=== PATIENT | male | born 1995 | race Caucasian/White ===

== ENCOUNTER 2017-11-24 00:13 | Observation (INO) | payer OTHER ==
[2017-11-24] VITALS (11 sets, daily range): BP systolic 114–137; BP diastolic 62–75; PULSE 55–86; RESP 16–20; TEMP 98.1–98.6; O2SAT 96–100
[~2017-11-24] VITALS: Ht 172.7 cm; Wt 80.0 kg
--- NOTE | 2017-11-24 02:19 | PD ---
HPI Chief Complaint: Chest Pain Time Seen by Provider: 01:51 Travel History International Travel<30 days: No Contact w/Intl Traveler<30days: No Traveled to known affect area: No History of Present Illness HPI The patient is a 22 year old male who presents to the [facility] emergency department with a history of awakening from sound sleep with mid epigastric abdominal pain at 12 midnight. He reports that the pain is sharp in character. He reports the pain is a 10 out of 10 in severity. It is coming and going. He denies any history of abdominal pain in the past. He had n/v x5 with this. He denies having any diarrhea. He reports that prior to going to bed he was watching Netflix and had a late dinner. He denies having any recent changes in his weight. The patient denies any recent fevers, neck pain, chest pain, shortness of breath, diarrhea, urinary symptoms, or neurologic symptoms. The patient reports that he had coughing congestion that is improved that began last week. The patient reports that with the abdominal pain he has had shortness of breath. He reports that the abdominal pain seems to take his breath away. The patient denies taking any [id number] pain relievers on a regular basis. [facility] Past Medical History Narrative Medical The patient's past medical history is reportedly none. Medical History: Denies Significant Hx Past Surgical History Surgical History: No Previous Surgery Social History Alcohol Use: No Tobacco Use: No Substance Use: No Allergies-Medications (Allergen,Severity, Reaction): Coded Allergies: Penicillins (Verified Allergy, Unknown, 11/25/17) Reported Meds & Prescriptions Reported Meds & Active Scripts Active No Active Prescriptions or Reported Medications Review of Systems Except as stated in HPI: all other systems reviewed are Neg General / Constitutional: No: Fever Eyes: No: Visual changes HENT: No: Headaches Cardiovascular: No: Chest Pain or Discomfort Respiratory: Positive: Shortness of Breath Gastrointestinal: Positive: Nausea, Vomiting, Abdominal Pain Genitourinary: No: Dysuria Musculoskeletal: No: Pain Skin: No Rash Neurologic: No: Weakness Psychiatric: No: Depression Endocrine: No: Polydipsia Hematologic/Lymphatic: No: Easy Bruising Physical Exam Narrative General: The patient is a well-developed well-nourished male in no acute distress. Head and Neck exam: Head is normocephalic atraumatic. Eyes: EOMI, pupils are equal round and reactive to light. Nose: Midline septum with pink mucous membranes Mouth: Dentition unremarkable. Moist mucus membranes. Posterior oropharynx is not erythematous. No tonsillar hypertrophy. Uvula midline. Airway patent. Neck: No palpable lymphadenopathy. No nuchal rigidity. No thyromegaly. Cardiovascular: Regular rate and rhythm without murmurs, gallops, or rubs. Lungs: Clear to auscultation bilaterally. No wheezes, rhonchi, or rales. Abdomen: Soft, with tenderness on palpation of the midepigastric area and right upper quadrant of the abdomen. No guarding, rebound, or rigidity. Normal bowel sounds are audible. No tenderness on palpation of McBurney's point. The patient has a positive Blanco sign. Extremities: No clubbing, cyanosis, or edema. 2+ pulses in all 4 extremities. Back: No spinous process tenderness to palpation. No costovertebral angle tenderness to palpation. Neurologic Exam: Grossly nonfocal. Skin Exam: No rash noted. Intact skin that is warm and dry. Data Data Last Documented VS Vital Signs Date Time Temp Pulse Resp B/P (MAP) Pulse Ox O2 Delivery O2 Flow Rate FiO2 11/24/17 07:39 67 20 114/71 (85) 100 Room Air 11/24/17 00:17 98.1 Orders Orders Electrocardiogram (11/24/17 01:51) Complete Blood Count With Diff (11/24/17 01:51) Comprehensive Metabolic Panel (11/24/17 01:51) Ckmb (Isoenzyme) Profile (11/24/17 01:51) Troponin I (11/24/17 01:51) B-Type Natriuretic Peptide (11/24/17 01:51) Lipase (11/24/17 01:51) Urinalysis - C+S If Indicated (11/24/17 01:51) D-Dimer (11/24/17 01:51) Chest, Single Ap (11/24/17 01:51) Iv Access Insert/Monitor (11/24/17 01:51) Ecg Monitoring (11/24/17 01:51) Oximetry (11/24/17 01:51) CKMB (11/24/17 02:00) CKMB% (11/24/17 02:00) Us Abdomen Gallbladder (11/24/17 04:27) Sodium Chlor 0.9% 1000 Ml Inj (Ns 1000 M (11/24/17 04:30) Ondansetron Inj (Zofran Inj) (11/24/17 04:30) Morphine Inj (Morphine Inj) (11/24/17 04:30) Piperacil-Tazo 3.375 Gm Premix (Zosyn 3. (11/24/17 06:30) Admit Order (Ed Use Only) (11/24/17 07:39) Consult General Surgery (11/24/17 ) Place In Observation (11/24/17 ) Vital Signs (Adult) Q4H (11/24/17 07:40) Activity Oob Ad Lizz (11/24/17 07:40) Sodium Chlor 0.9% 1000 Ml Inj (Ns 1000 M (11/24/17 07:40) Sodium Chloride 0.9% Flush (Ns Flush) (11/24/17 07:45) Sodium Chloride 0.9% Flush (Ns Flush) (11/24/17 09:00) Acetaminophen (Tylenol) (11/24/17 07:45) Ondansetron Inj (Zofran Inj) (11/24/17 07:45) Complete Blood Count With Diff (11/25/17 06:00) Naloxone Inj (Narcan Inj) (11/24/17 07:45) Calcium Carbonate Chew (Tums Chew) (11/24/17 07:45) Labs Laboratory Tests Test 11/24/17 02:00 White Blood Count 13.4 TH/MM3 Red Blood Count 4.81 MIL/MM3 Hemoglobin 14.3 GM/DL Hematocrit 41.2 % Mean Corpuscular Volume 85.5 FL Mean Corpuscular Hemoglobin 29.8 PG Mean Corpuscular Hemoglobin Concent 34.8 % Red Cell Distribution Width 12.9 % Platelet Count 319 TH/MM3 Mean Platelet Volume 7.0 FL Neutrophils (%) (Auto) 79.6 % Lymphocytes (%) (Auto) 13.9 % Monocytes (%) (Auto) 5.7 % Eosinophils (%) (Auto) 0.6 % Basophils (%) (Auto) 0.2 % Neutrophils # (Auto) 10.7 TH/MM3 Lymphocytes # (Auto) 1.9 TH/MM3 Monocytes # (Auto) 0.8 TH/MM3 Eosinophils # (Auto) 0.1 TH/MM3 Basophils # (Auto) 0.0 TH/MM3 CBC Comment DIFF FINAL Differential Comment D-Dimer Quantitative (PE/DVT) 0.28 MG/L FEU Urine Color YELLOW Urine Turbidity CLEAR Urine pH 6.0 Urine Specific [place] 1.023 Urine Protein TRACE mg/dL Urine Glucose (UA) NEG mg/dL Urine Ketones NEG mg/dL Urine Occult Blood NEG Urine Nitrite NEG Urine Bilirubin NEG Urine Urobilinogen LESS THAN 2.0 MG/DL Urine Leukocyte Esterase NEG Urine RBC 2 /hpf Urine WBC 1 /hpf Urine Squamous Epithelial Cells <1 /hpf Urine Bacteria RARE /hpf Urine Mucus FEW /lpf Microscopic Urinalysis Comment CULT NOT INDICATED Blood Urea Nitrogen 12 MG/DL Creatinine 1.02 MG/DL Random Glucose 85 MG/DL Total Protein 7.9 GM/DL Albumin 4.0 GM/DL Calcium Level 8.6 MG/DL Alkaline Phosphatase 153 U/L Aspartate Amino Transf (AST/SGOT) 84 U/L Alanine Aminotransferase (ALT/SGPT) 73 U/L Total Bilirubin 0.3 MG/DL Sodium Level 138 MEQ/L Potassium Level 3.8 MEQ/L Chloride Level 102 MEQ/L Carbon Dioxide Level 28.0 MEQ/L Anion Gap 8 MEQ/L Estimat Glomerular Filtration Rate 93 ML/MIN Total Creatine Kinase 160 U/L Creatine Kinase MB 1.3 NG/ML Troponin I LESS THAN 0.02 NG/ML B-Type Natriuretic Peptide 2 PG/ML Lipase 145 U/L [facility] Medical Decision Making Medical Screen Exam Complete: Yes Emergency Medical Condition: Yes Medical Record Reviewed: Yes Interpretation(s) Last Impressions Gall Bladder Ultrasound 11/24/17 0427 Signed Impressions: Service Date/Time: Friday, November 24, 2017 03:53 - CONCLUSION: 1. Positive for gallbladder sludge without gallstones or biliary ductal dilatation. Remainder of exam unremarkable. Elliot Morillo MD Chest X-Ray 11/24/17 0151 Signed Impressions: Service Date/Time: Friday, November 24, 2017 02:20 - CONCLUSION: 1. No acute findings. Minimal basilar atelectasis. Elliot Morillo MD Differential Diagnosis Biliary colic, versus acute cholecystitis, versus peptic ulcer disease, versus acid reflux, versus pulmonary embolism Narrative Course During the course of the patients emergency department visit, the patients history, examination, and differential diagnosis were reviewed with the patient. The patient was placed on a diagnostic cardiac sonographer with oximetry and frequent blood pressure monitoring. The patient had IV access obtained and blood work sent for analysis. The patient had an EKG done on arrival that shows a sinus rhythm heart rate is 75, QRS duration is 99 ms, QTc is 410 ms, no acute ST segment elevation is noted. He waves are inverted in V1. The patient was initially provided normal saline IV fluids, morphine for pain, Zofran for nausea. The patient's laboratory studies were reviewed and remarkable for a white count of 13.4, hemoglobin 14.3, platelets 319 with 79.6 neutrophils, CMP is remarkable for an AST of 84, ALT 73, alkaline phosphatase 153, lipase 145, cardiac enzymes within normal limits, BNP within normal limits, d-dimer 0.28 decreased the likelihood of pulmonary embolism in this patient with no other significant risk factors. Urinalysis is unremarkable. Radiology studies were reviewed and remarkable for a chest x-ray that shows no acute findings. Ultrasound of the gallbladder shows sludge in the gallbladder without gallstones or biliary ductal dilatation. I spoke to Dr. Mcneal at 7 AM. He recommended that the patient be admitted to the medical service, GI consultation for consideration of endoscopy to rule out peptic ulcer disease. He reported that he will see the patient consultation. The patients results were discussed with the patient, including the plan of care. I explained that further testing and/ or monitoring is indicated based on the patients history, examination, and/ or laboratory findings. Therefore, I recommended admission for additional evaluation. The patient expressed understanding and was agreeable with this plan. The patient was admitted to the hospital in stable condition and [facility] Physician Communication Physician Communication The patient's case including history, pertinent physical examination findings, and laboratory studies were discussed with Dr. Mcneal the general surgeon, and Dr. Duque, the hospitalist. It was agreed that the [facility]. Mcneal recommended a GI consultation and he will see the patient in consultation. Diagnosis Primary Impression: Abdominal pain Qualified Codes: R10.11 - Right upper quadrant pain Additional Impressions: Biliary sludge Leukocytosis Qualified Codes: D72.829 - Elevated white blood cell count, unspecified Admitting Information Admitting Physician Requests: Observation Scripts No Active Prescriptions or Reported Meds Rubia Cole MD Nov 24, 2017 02:19
[2017-11-24 02:24] LABS: BACTERIA, URINE RARE /hpf; BILIRUBIN, URINE NEG (NEG); BLOOD, URINE NEG (NEG); GLUCOSE,URINE NEG (NEG); KETONE, URINE NEG (NEG); MUCUS URINE FEW /lpf (OCC); NITRITE,URINE NEG (NEG); SQUAMOUS EPITHELIAL CELL URINE <1 /hpf (0-5); URINE COLOR YELLOW (YELLW/STRAW); URINE LEUKOCYTE ESTERASE NEG (NEG)
[2017-11-24 02:28] LABS: AUTOMATED NEUTROPHIL # 10.7 TH/MM3 (1.8-7.7); BASOPHIL % 0.2 % (0.0-2.0); EOSINOPHIL # 0.1 TH/MM3 (0-0.4); EOSINOPHIL % 0.6 % (0.0-4.0); HEMATOCRIT 41.2 % (39.0-51.0); HEMOGLOBIN 14.3 GM/DL (13.0-17.0); LYMPH % 13.9 % (9.0-44.0); LYMPHOCYTE # 1.9 TH/MM3 (1.0-4.8); MEAN CELL VOLUME 85.5 FL (80.0-100.0); MEAN CORPUSCULAR HEMOGLOBIN 29.8 PG (27.0-34.0); MEAN CORPUSCULAR HGB CONC 34.8 % (32.0-36.0); MONO % 5.7 % (0.0-8.0); MONOCYTE # 0.8 TH/MM3 (0-0.9); NEUT % 79.6 % (16.0-70.0); PLATELET COUNT 319 TH/MM3 (150-450); RED BLOOD COUNT 4.81 MIL/MM3 (4.50-5.90); RED CELL DISTRIBUTION WIDTH 12.9 % (11.6-17.2); WHITE BLOOD COUNT 13.4 TH/MM3 (4.0-11.0)
--- NOTE | 2017-11-24 02:39 | RADRPT ---
EXAM DATE/TIME: 11/24/2017 02:20 [facility] COMPARISON: No previous studies available for comparison. INDICATIONS : Chest pain. MEDICAL HISTORY : None. SURGICAL HISTORY : None. ENCOUNTER: Initial ACUITY: 1 day PAIN SCORE: 7/10 LOCATION: Bilateral chest FINDINGS: A single view of the chest demonstrates the lungs to be symmetrically aerated without evidence of mas s, infiltrate or effusion. The cardiomediastinal contours are unremarkable. Osseous structures are intact. CONCLUSION: 1. No acute findings. Minimal basilar atelectasis. Elliot Morillo MD on November 24, 2017 at 2:37 Board Certified Radiologist. This report was verified electronically.
[2017-11-24 02:40] LABS: ALT (GPT) 73 U/L (9-52); AST (GOT) 84 U/L (15-39); BLOOD UREA NITROGEN 12 MG/DL (7-18); CALCIUM 8.6 MG/DL (8.5-10.1); CHLORIDE 102 MEQ/L (98-107); CREATININE 1.02 MG/DL (0.60-1.30); GLOMERULAR FILTRATION RATE 93 ML/MIN (>89); GLUCOSE,RANDOM 85 MG/DL (74-106); SODIUM (NA) 138 MEQ/L (136-145)
[2017-11-24 02:44] LABS: ALKALINE PHOSPHATASE 153 U/L (45-117); TOTAL BILIRUBIN ADULT 0.3 MG/DL (0.2-1.0); TOTAL PROTEIN 7.9 GM/DL (6.4-8.2); TROPONIN I LESS THAN 0.02 NG/ML (0.02-0.05)
[2017-11-24] MEDS ORDERED: SODIUM CHLOR 0.9% 1000 ML INJ 1,000 ML IV ONE (04:30)
[2017-11-24] MEDS ORDERED: MORPHINE SULFATE 4 MG/ML INJ IV PUSH ONE (04:30)
[2017-11-24] MEDS ORDERED: ONDANSETRON HCL 4 MG/2 ML VIAL IV ONE (04:30)
--- NOTE | 2017-11-24 05:35 | RADRPT ---
EXAM DATE/TIME: 11/24/2017 03:53 [facility] COMPARISON: No previous studies available for comparison. INDICATIONS : Right upper quadrant pain. MEDICAL HISTORY : Right upper quadrant pain. SURGICAL HISTORY : None. ENCOUNTER: Initial ACUITY: 1 day PAIN SCORE: 3/10 LOCATION: Right upper quadrant MEASUREMENTS: LIVER: 15.9 cm length COMMON DUCT: 3 mm RIGHT KIDNEY: 11.0 x 5.2 x 5.4 cm FINDINGS: LIVER: Normal echotexture without focal lesion or ductal dilatation. COMMON DUCT: No intraluminal mass or stone visualized. GALLBLADDER: sludge present. No gallstones. PANCREAS: The visualized portions are within normal limits. RIGHT KIDNEY: No evidence of hydronephrosis, stone, or mass. CONCLUSION: 1. Positive for gallbladder sludge without gallstones or biliary ductal dilatation. Remainder of exam unremarkable. Elliot Morillo MD on November 24, 2017 at 5:30 Board Certified Radiologist. This report was verified electronically.
[2017-11-24] MEDS ORDERED: PIPERACIL-TAZO 3.375 GM PREMIX 50 ML IV ONE (06:30)
[2017-11-24] MEDS ORDERED: CALCIUM CARBONATE 500 MG CHEWABLE TAB CHEW ONE (07:45)
[2017-11-24] MEDS ORDERED: ONDANSETRON HCL 4 MG/2 ML VIAL IVP PRN (07:45)
[2017-11-24] MEDS ORDERED: SODIUM CHLORIDE 0.9% FLUSH 10 ML FLUSH IV FLUSH PRN (07:45)
[2017-11-24] MEDS ORDERED: NALOXONE HCL 0.4 MG/ML AMP IV PUSH PRN (07:45)
[2017-11-24] MEDS ORDERED: ACETAMINOPHEN 325 MG TAB PO PRN (07:45)
[2017-11-24] MEDS: SODIUM CHLOR 0.9% 1000 ML INJ 1,000 ML IV SCH (09:22)
[2017-11-24] MEDS: SODIUM CHLORIDE 0.9% FLUSH 10 ML FLUSH IV FLUSH SCH ×2 (09:23→21:00)
--- NOTE | 2017-11-24 09:56 | PD.CONS ---
cc: Kris Mcneal MD HPI Service General Surgery Consult Requested By Dr. Cole Reason for Consult Evaluate RUQ tenderness; US shows gallbladder sludge Primary Care Physician Unknown History of Present Illness This is a 22 year old male with no past medical history. He awoke from a deep sleep about midnight with 10/10 constant pain. He has had multiple episodes of nausea and vomiting. He last ate [employer] for dinner with his friend who is also present in the room and feels fine. Of note, the patient did have an upper respiratory infection with questionable influenza about a week to a week and a half ago which was treated with over the counter medications. An US was obtained which shows gallbladder sludge without any biliary dilatation. The patient does have a mildly elevated white blood cell count. His total bilirubin is normal. His other liver enzymes are mildly elevated. The patient has had a clear liquid diet this morning and tolerated it without any issues. A General Surgery consultation has been requested. Review of Systems Constitutional: DENIES: Fatigue, Weight loss Endocrine: DENIES: Polydipsia, Polyuria, Polyphagia Eyes: DENIES: Diplopia Ears, nose, mouth, throat: DENIES: Hearing loss Respiratory: DENIES: Cough Cardiovascular: DENIES: Chest pain, Syncope Gastrointestinal: COMPLAINS OF: Abdominal pain, Nausea, Vomiting Genitourinary: DENIES: Urgency Musculoskeletal: DENIES: Muscle aches Integumentary: DENIES: Abnormal pigmentation Hematologic/lymphatic: DENIES: Bruising Immunologic/allergic: DENIES: Eczema Neurologic: DENIES: Headache, Localized weakness Psychiatric: DENIES: Mood changes, Depression Past Family Social History Past Medical History None Past Surgical History None Reported Medications None Allergies: Coded Allergies: Penicillins (Verified Allergy, Unknown, 11/25/17) Active Ordered Medications Current Medications Medications (Trade) Dose Ordered Sig/Zainab Route Start Time Stop Time Status Last Admin Sodium Chloride 1,000 ml @ 100 mls/hr Q10H IV 11/24/17 07:40 11/24/17 09:22 (NS Flush) 2 ml UNSCH PRN IV FLUSH 11/24/17 07:45 (NS Flush) 2 ml BID IV FLUSH 1/30/18 09:00 11/24/17 09:23 (Tylenol) 650 mg Q4H PRN PO 11/24/17 07:45 (Zofran Inj) 4 mg Q6H PRN IVP 11/24/17 07:45 (Narcan Inj) 0.4 mg UNSCH PRN IV PUSH 11/24/17 07:45 Family History Maternal Grandmother with gallbladder removal Social History Denies tobacco use Denies ETOH use Denies illicit drug use 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 He plays on the baseball team. Physical Exam Vital Signs Vital Signs Date Time Temp Pulse Resp B/P (MAP) Pulse Ox O2 Delivery O2 Flow Rate FiO2 11/24/17 07:39 67 20 114/71 (85) 100 Room Air 11/24/17 04:18 69 16 116/75 (89) 96 Room Air 11/24/17 02:07 99 Room Air 11/24/17 02:07 86 18 99 Room Air 11/24/17 00:47 55 18 137/75 (95) 100 11/24/17 00:17 98.1 60 20 97 Room Air Physical Exam GENERAL: Very pleasant 22 year old male resting in bed in no acute distress. SKIN: Warm and dry. HEAD: Atraumatic. Normocephalic. EYES: Pupils equal and round. No scleral icterus. No injection or drainage. ENT: No nasal bleeding or discharge. Mucous membranes pink and moist. NECK: Trachea midline. CARDIOVASCULAR: Regular rate and rhythm. RESPIRATORY: No accessory muscle use. Clear to auscultation. Breath sounds equal bilaterally. GASTROINTESTINAL: Abdomen soft, non distended. Minimal tenderness with deep palpation in RUQ. No visible scars or hernias. MUSCULOSKELETAL: Extremities without clubbing, cyanosis, or edema. No obvious deformities. NEUROLOGICAL: Awake and alert. No obvious cranial nerve deficits. Motor grossly within normal limits. Five out of 5 muscle strength in the arms and legs. Normal speech. PSYCHIATRIC: Appropriate mood and affect; insight and judgment normal. Laboratory Laboratory Tests Test 11/24/17 02:00 White Blood Count 13.4 Red Blood Count 4.81 Hemoglobin 14.3 Hematocrit 41.2 Mean Corpuscular Volume 85.5 Mean Corpuscular Hemoglobin 29.8 Mean Corpuscular Hemoglobin Concent 34.8 Red Cell Distribution Width 12.9 Platelet Count 319 Mean Platelet Volume 7.0 Neutrophils (%) (Auto) 79.6 Lymphocytes (%) (Auto) 13.9 Monocytes (%) (Auto) 5.7 Eosinophils (%) (Auto) 0.6 Basophils (%) (Auto) 0.2 Neutrophils # (Auto) 10.7 Lymphocytes # (Auto) 1.9 Monocytes # (Auto) 0.8 Eosinophils # (Auto) 0.1 Basophils # (Auto) 0.0 CBC Comment DIFF FINAL Differential Comment D-Dimer Quantitative (PE/DVT) 0.28 Urine Color YELLOW Urine Turbidity CLEAR Urine pH 6.0 Urine Specific [place] 1.023 Urine Protein TRACE Urine Glucose (UA) NEG Urine Ketones NEG Urine Occult Blood NEG Urine Nitrite NEG Urine Bilirubin NEG Urine Urobilinogen LESS THAN 2.0 Urine Leukocyte Esterase NEG Urine RBC 2 Urine WBC 1 Urine Squamous Epithelial Cells <1 Urine Bacteria RARE Urine Mucus FEW Microscopic Urinalysis Comment CULT NOT INDICATED Blood Urea Nitrogen 12 Creatinine 1.02 Random Glucose 85 Total Protein 7.9 Albumin 4.0 Calcium Level 8.6 Alkaline Phosphatase 153 Aspartate Amino Transf (AST/SGOT) 84 Alanine Aminotransferase (ALT/SGPT) 73 Total Bilirubin 0.3 Sodium Level 138 Potassium Level 3.8 Chloride Level 102 Carbon Dioxide Level 28.0 Anion Gap 8 Estimat Glomerular Filtration Rate 93 Total Creatine Kinase 160 Creatine Kinase MB 1.3 Troponin I LESS THAN 0.02 B-Type Natriuretic Peptide 2 Lipase 145 Result Diagram: 11/24/1719911/24/17 020 Imaging Last 48 hours Impressions Gall Bladder Ultrasound 11/24/17426 Signed Impressions: Service Date/Time: Friday, November 24, 2017 03:53 - CONCLUSION: 1. Positive for gallbladder sludge without gallstones or biliary ductal dilatation. Remainder of exam unremarkable. Elliot Morillo MD Chest X-Ray 11/24/17 0151 Signed Impressions: Service Date/Time: Friday, November 24, 2017 02:20 - CONCLUSION: 1. No acute findings. Minimal basilar atelectasis. Elliot Morillo MD Assessment and Plan Assessment and Plan 22 year old male with acute onset of RUQ abdominal pain; questionable gallbladder etiology -Will plan for HIDA scan this afternoon -NPO -IVF -GI consult as well -Need to monitor liver enzymes -Thank you for this consult; We will continue to follow Attending Note - Dr. Mcneal Patient seen and evaluated; quite tender in the epigastrium and RUQ. EGD completed; no ulcer HIDA shows good visualization of GB If pain improved in AM, will consider D/C home. The exam, history, and the medical decision-making described in the above note were completed with the assistance of the mid-level provider. I reviewed and agree with the findings presented. I attest that I had a [id number] encounter with the patient on the same day, and personally performed and documented my assessment and findings in the medical record. Discussed Condition With Patsy Cooley Nov 24, 2017 09:56 Kris Mcneal MD Nov 25, 2017 15:12
--- NOTE | 2017-11-24 10:30 | HHI.HP ---
[facility] Unknown Admission Diagnosis Abdominal pain, Gallbladder sludge Diagnoses: Chief Complaint: Abdominal pain Travel History International Travel<30 Days: No Contact w/Intl Traveler <30 Da: No Traveled to Known Affected Are: No History of Present Illness 22-year-old male with no significant medical history presented to the emergency room with complaint of midepigastric pain. Patient states he ate some chicken filet late last night and about 4 hours later he started to experience midepigastric abdominal pain with associated nausea and vomiting 5. He denies any history of acid reflux. He denies any diarrhea. Workup in the emergency room revealed mildly elevated LFTs and sludge in the gallbladder but no obstructions. He is wbc's also mildly elevated. Patient reports since arrival he is feeling better. Still experiencing some mid epigastric discomfort but no longer has nausea or vomiting. General surgery has been consulted by the ED physician for evaluation given the abnormal gallbladder ultrasound. Review of Systems Constitutional: DENIES: Fever, Chills Gastrointestinal: COMPLAINS OF: Abdominal pain, Nausea, Vomiting, DENIES: Black stools, Diarrhea Except as stated in HPI: all other systems reviewed are Neg Past Family Social History Past Medical History None Past Surgical History None Reported Medications Reported Meds & Active Scripts Active No Active Prescriptions or Reported Medications Allergies: Coded Allergies: No Known Allergies (Unverified , 11/24/17) Family History Grandmother has history of gallstone and cholecystectomy. Social History Patient denies tobacco, alcohol, or illicit drugs. Physical Exam Vital Signs Vital Signs Date Time Temp Pulse Resp B/P (MAP) Pulse Ox O2 Delivery O2 Flow Rate FiO2 11/24/17 07:39 67 20 114/71 (85) 100 Room Air 11/24/17 04:18 69 16 116/75 (89) 96 Room Air 11/24/17 02:07 99 Room Air 11/24/17 02:07 86 18 99 Room Air 11/24/17 00:47 55 18 137/75 (95) 100 11/24/17 00:17 98.1 60 20 97 Room Air Physical Exam GENERAL: This is a well-nourished, well-developed patient, in no apparent distress. SKIN: No rashes, ecchymoses or lesions. Cool and dry. HEAD: Atraumatic. Normocephalic. No temporal or scalp tenderness. EYES: Pupils equal round and reactive. Extraocular motions intact. No scleral icterus. No injection or drainage. ENT: Nose without drainage. Throat without erythema, tonsillar hypertrophy or exudate. Uvula midline. Airway patent. NECK: Trachea midline. No JVD or lymphadenopathy. Supple, nontender, no meningeal signs. CARDIOVASCULAR: Regular rate and rhythm without murmurs, gallops, or rubs. RESPIRATORY: Clear to auscultation. Breath sounds equal bilaterally. No wheezes , rales, or rhonchi. GASTROINTESTINAL: Abdomen soft, nondistended. Mild midepigastric tenderness to deep palpation. MUSCULOSKELETAL: Extremities without clubbing, cyanosis, or edema. No joint tenderness, effusion, or edema noted. No calf tenderness. Negative Homans sign bilaterally. NEUROLOGICAL: Awake and alert. Cranial nerves II through XII intact. Motor and sensory grossly within normal limits. Five out of 5 muscle strength in all muscle groups. Normal speech. Laboratory Laboratory Tests Test 11/24/17 02:00 White Blood Count 13.4 Red Blood Count 4.81 Hemoglobin 14.3 Hematocrit 41.2 Mean Corpuscular Volume 85.5 Mean Corpuscular Hemoglobin 29.8 Mean Corpuscular Hemoglobin Concent 34.8 Red Cell Distribution Width 12.9 Platelet Count 319 Mean Platelet Volume 7.0 Neutrophils (%) (Auto) 79.6 Lymphocytes (%) (Auto) 13.9 Monocytes (%) (Auto) 5.7 Eosinophils (%) (Auto) 0.6 Basophils (%) (Auto) 0.2 Neutrophils # (Auto) 10.7 Lymphocytes # (Auto) 1.9 Monocytes # (Auto) 0.8 Eosinophils # (Auto) 0.1 Basophils # (Auto) 0.0 CBC Comment DIFF FINAL Differential Comment D-Dimer Quantitative (PE/DVT) 0.28 Urine Color YELLOW Urine Turbidity CLEAR Urine pH 6.0 Urine Specific [place] 1.023 Urine Protein TRACE Urine Glucose (UA) NEG Urine Ketones NEG Urine Occult Blood NEG Urine Nitrite NEG Urine Bilirubin NEG Urine Urobilinogen LESS THAN 2.0 Urine Leukocyte Esterase NEG Urine RBC 2 Urine WBC 1 Urine Squamous Epithelial Cells <1 Urine Bacteria RARE Urine Mucus FEW Microscopic Urinalysis Comment CULT NOT INDICATED Blood Urea Nitrogen 12 Creatinine 1.02 Random Glucose 85 Total Protein 7.9 Albumin 4.0 Calcium Level 8.6 Alkaline Phosphatase 153 Aspartate Amino Transf (AST/SGOT) 84 Alanine Aminotransferase (ALT/SGPT) 73 Total Bilirubin 0.3 Sodium Level 138 Potassium Level 3.8 Chloride Level 102 Carbon Dioxide Level 28.0 Anion Gap 8 Estimat Glomerular Filtration Rate 93 Total Creatine Kinase 160 Creatine Kinase MB 1.3 Troponin I LESS THAN 0.02 B-Type Natriuretic Peptide 2 Lipase 145 Result Diagram: 11/24/1719911/24/17199 Imaging Last Impressions Gall Bladder Ultrasound 11/24/17426 Signed Impressions: Service Date/Time: Friday, November 24, 2017 03:53 - CONCLUSION: 1. Positive for gallbladder sludge without gallstones or biliary ductal dilatation. Remainder of exam unremarkable. Elliot Morillo MD Chest X-Ray 11/24/17 0151 Signed Impressions: Service Date/Time: Friday, November 24, 2017 02:20 - CONCLUSION: 1. No acute findings. Minimal basilar atelectasis. Elliot Morillo MD Caprini VTE Risk Assessment Caprini VTE Risk Assessment: No/Low Risk (score <= 1) Caprini Risk Assessment Model Point Value = 1 Point Value = 2 Point Value = 3 Point Value = 5 Age 41-60 Minor surgery BMI > 25 kg/m2 Swollen legs Varicose veins or History of unexplained or recurrent spontaneous Oral contraceptives or hormone replacement Sepsis (< 1 month) Serious lung disease, including pneumonia (< 1 month) Abnormal pulmonary function Acute myocardial infarction Congestive heart failure (< 1 month) History of inflammatory bowel disease Medical patient at bed rest Age 61-74 Arthroscopic surgery Major open surgery (> 45 min) Laparoscopic surgery (> 45 min) Malignancy Confined to bed (> 72 hours) Immobilizing plaster cast Central venous access Age >= 75 History of VTE Family history of VTE Factor V Leiden Prothrombin [id number] Lupus anticoagulant Anticardiolipin antibodies Elevated serum homocysteine Heparin-induced thrombocytopenia Other congenital or acquired thrombophilia Stroke (< 1 month) Elective arthroplasty Hip, pelvis, or leg fracture Acute spinal cord injury (< 1 month) Prophylaxis Regimen Total Risk Factor Score Risk Level Prophylaxis Regimen 0-1 Low Early ambulation 2 Moderate Order ONE of the following: *Sequential Compression Device (SCD) *Heparin 5000 units SQ BID 3-4 Higher Order ONE of the following medications: *Heparin 5000 units SQ TID *Enoxaparin/Lovenox 40 mg SQ daily (WT < 150 kg, CrCl > 30 mL/min) *Enoxaparin/Lovenox 30 mg SQ daily (WT < 150 kg, CrCl > 10-29 mL/min) *Enoxaparin/Lovenox 30 mg SQ BID (WT < 150 kg, CrCl > 30 mL/min) AND/OR *Sequential Compression Device (SCD) 5 or more Highest Order ONE of the following medications: *Heparin 5000 units SQ TID (Preferred with Epidurals) *Enoxaparin/Lovenox 40 mg SQ daily (WT < 150 kg, CrCl > 30 mL/min) *Enoxaparin/Lovenox 30 mg SQ daily (WT < 150 kg, CrCl > 10-29 mL/min) *Enoxaparin/Lovenox 30 mg SQ BID (WT < 150 kg, CrCl > 30 mL/min) AND *Sequential Compression Device (SCD) Assessment and Plan Problem List: (1) Abdominal pain ICD Code: R10.9 - Unspecified abdominal pain Status: Acute (2) Biliary sludge ICD Code: K83.8 - Other specified diseases of biliary tract Status: Acute (3) Leukocytosis ICD Code: D72.829 - Elevated white blood cell count, unspecified Status: Acute Assessment and Plan 22-year-old male presented with acute symptoms of midepigastric pain with associated nausea and vomiting. Abnormal gallbladder ultrasound which showed sludge with no obstructions. Abdominal pain/gallbladder sludge: Given improvement in his symptoms, this is likely gastroenteritis. He may have gastritis. - Gen. surgery is following. A HIDA scan and GI consult has been ordered per Gen surgery to rule out - Continue with supportive care. IVF, clear liquid as tolerated - Pain control as needed. Leukocytosis: Secondary to above. No evidence of an acute bacterial infection at this time. - Repeat labs in AM. Expect improvement or correction. Elevated LFTs: Suspect secondary to probable Gastroenteritis. No obstruction pattern. - Repeat LFT in AM. Admit for observation. Monitor progress and consultants input. Problem Qualifiers (1) Abdominal pain: Qualified Codes: R10.11 - Right upper quadrant pain (2) Leukocytosis: Qualified Codes: D72.829 - Elevated white blood cell count, unspecified Angie Duque MD Nov 24, 2017 10:30
[2017-11-24] MEDS ORDERED: PROPOFOL 200 MG/20 ML AMP IV ONE (12:00)
[2017-11-24] MEDS ORDERED: LIDOCAINE HCL 1% PF 5 ML SYRINGE OTHER ONE (12:00)
[2017-11-24] MEDS ORDERED: SINCALIDE 5 MCG/5 ML VIAL IV ONE (14:30)
--- NOTE | 2017-11-24 15:49 | PD.CONS ---
HPI History of Present Illness This is a 22 year old male who was in his usual state of health up until after midnight when he experienced the sudden onset of epigastric pain this was severe cramping sort of pain up her abdomen no distinct radiation no obvious alleviating or exacerbating factors he presented to the ER an ultrasound was done and it shows that he has biliary sludge otherwise unremarkable arthritis scan was just done this is still pending as far as the result patient denies any heartburn reflux fever chills change in appetite weight loss diarrhea constipation PFSH Past Medical History None Past Surgical History None Coded Allergies: No Known Allergies (Unverified , 11/24/17) Medications Current Medications Sodium Chloride 1,000 ml @ 1,000 mls/hr Q1H ONCE IV Last administered on at 04:43; Start 11/24/17 at 04:30; Stop 11/24/17 at 05:29; Status DC Ondansetron HCl (Zofran Inj) 4 mg ONCE ONCE IV ; Start 11/24/17 at 04:30; Stop 11/24/17 at 04:31; Status DC Morphine Sulfate (Morphine Inj) 4 mg ONCE ONCE IV PUSH ; Start 11/24/17 at 04: 30; Stop 11/24/17 at 04:31; Status DC Piperacillin Sod/ Tazobactam Sod 50 ml @ 100 mls/hr ONCE ONCE IV Last administered on 11/24/17at 06:49; Start 11/24/17 at 06:30; Stop 11/24/17 at 06:59 ; Status DC Sodium Chloride 1,000 ml @ 100 mls/hr Q10H IV Last administered on 11/24/17at 09:22; Start 11/24/17 at 07:40 Sodium Chloride (NS Flush) 2 ml UNSCH PRN IV FLUSH FLUSH AFTER USING IV ACCESS ; Start 11/24/17 at 07:45 Sodium Chloride (NS Flush) 2 ml BID IV FLUSH Last administered on 11/24/17at 09: 23; Start 11/24/17 at 09:00 Acetaminophen (Tylenol) 650 mg Q4H PRN PO pain 1-10 or TEMP > 100.4; Start at 07:45 Ondansetron HCl (Zofran Inj) 4 mg Q6H PRN IVP NAUSEA OR VOMITING; Start at 07:45 Naloxone HCl (Narcan Inj) 0.4 mg UNSCH PRN IV PUSH SEE LABEL COMMENTS; Start at 07:45 Calcium Carbonate (Tums Chew) 500 mg ONCE ONCE CHEW Last administered on at 09:22; Start 11/24/17 at 07:45; Stop 11/24/17 at 07:55; Status DC Sincalide (Kinevac Inj) 1.6 mcg STK-MED ONCE IV Last administered on 11/24/17at 14:30; Start 11/24/17 at 14:30; Stop 11/24/17 at 14:31; Status DC Family History Grandmother has history of gallstone and cholecystectomy. Aunt has Crohn's disease Social History Patient denies tobacco, alcohol, or illicit drugs. Review of Systems Review of systems Patient denies any headache dizziness blurry vision, denies any chest pain shortness of breath cough fever chills, Denies any palpitations or fatigue denies any polyuria dysuria hematuria, denies any numbness tingling or weakness, denies any skin rash pruritus or jaundice, denies any easy bruising or bleeding tendency, denies any recent change in mood GI Exam Vitals I&O Vital Signs Date Time Temp Pulse Resp B/P (MAP) Pulse Ox O2 Delivery O2 Flow Rate FiO2 11/24/17 15:29 11/24/17 15:28 98.2 66 20 114/74 (87) 98 11/24/17 12:50 98.6 64 16 122/62 (82) 100 Room Air 11/24/17 07:39 67 20 114/71 (85) 100 Room Air 11/24/17 04:18 69 16 116/75 (89) 96 Room Air 11/24/17 02:07 99 Room Air 11/24/17 02:07 86 18 99 Room Air 11/24/17 00:47 55 18 137/75 (95) 100 11/24/17 00:17 98.1 60 20 97 Room Air I/O 11/23/17 11/23/17 11/23/17 11/24/17 11/24/17 11/24/17 07:00 15:00 23:00 07:00 15:00 23:00 Intake Total 1000 ml 1000 ml Balance 1000 ml 1000 ml Intake Oral 600 ml IV Total 1000 ml 400 ml # Voids 1 Imaging Last Impressions Gall Bladder Ultrasound 11/24/17 0427 Signed Impressions: Service Date/Time: Friday, November 24, 2017 03:53 - CONCLUSION: 1. Positive for gallbladder sludge without gallstones or biliary ductal dilatation. Remainder of exam unremarkable. Elliot Morillo MD Chest X-Ray 11/24/17 0151 Signed Impressions: Service Date/Time: Friday, November 24, 2017 02:20 - CONCLUSION: 1. No acute findings. Minimal basilar atelectasis. Elliot Morillo MD Laboratory Test 11/24/17 02:00 White Blood Count 13.4 TH/MM3 Red Blood Count 4.81 MIL/MM3 Hemoglobin 14.3 GM/DL Hematocrit 41.2 % Mean Corpuscular Volume 85.5 FL Mean Corpuscular Hemoglobin 29.8 PG Mean Corpuscular Hemoglobin Concent 34.8 % Red Cell Distribution Width 12.9 % Platelet Count 319 TH/MM3 Mean Platelet Volume 7.0 FL Neutrophils (%) (Auto) 79.6 % Lymphocytes (%) (Auto) 13.9 % Monocytes (%) (Auto) 5.7 % Eosinophils (%) (Auto) 0.6 % Basophils (%) (Auto) 0.2 % Neutrophils # (Auto) 10.7 TH/MM3 Lymphocytes # (Auto) 1.9 TH/MM3 Monocytes # (Auto) 0.8 TH/MM3 Eosinophils # (Auto) 0.1 TH/MM3 Basophils # (Auto) 0.0 TH/MM3 CBC Comment DIFF FINAL Differential Comment D-Dimer Quantitative (PE/DVT) 0.28 MG/L FEU Urine Color YELLOW Urine Turbidity CLEAR Urine pH 6.0 Urine Specific [place] 1.023 Urine Protein TRACE mg/dL Urine Glucose (UA) NEG mg/dL Urine Ketones NEG mg/dL Urine Occult Blood NEG Urine Nitrite NEG Urine Bilirubin NEG Urine Urobilinogen LESS THAN 2.0 MG/DL Urine Leukocyte Esterase NEG Urine RBC 2 /hpf Urine WBC 1 /hpf Urine Squamous Epithelial Cells <1 /hpf Urine Bacteria RARE /hpf Urine Mucus FEW /lpf Microscopic Urinalysis Comment CULT NOT INDICATED Blood Urea Nitrogen 12 MG/DL Creatinine 1.02 MG/DL Random Glucose 85 MG/DL Total Protein 7.9 GM/DL Albumin 4.0 GM/DL Calcium Level 8.6 MG/DL Alkaline Phosphatase 153 U/L Aspartate Amino Transf (AST/SGOT) 84 U/L Alanine Aminotransferase (ALT/SGPT) 73 U/L Total Bilirubin 0.3 MG/DL Sodium Level 138 MEQ/L Potassium Level 3.8 MEQ/L Chloride Level 102 MEQ/L Carbon Dioxide Level 28.0 MEQ/L Anion Gap 8 MEQ/L Estimat Glomerular Filtration Rate 93 ML/MIN Total Creatine Kinase 160 U/L Creatine Kinase MB 1.3 NG/ML Troponin I LESS THAN 0.02 NG/ML B-Type Natriuretic Peptide 2 PG/ML Lipase 145 U/L Physical Examination HEENT: Pupils round and reactive to light; normocephalic; atraumatic; no jaundice. Throat is clear. NECK: Neck is supple, no JVD, no lymphadenopathy. CHEST: Chest is clear to auscultation and percussion. CARDIAC: Regular rate and rhythm with no murmur gallop or rubs. ABDOMEN: Soft, nondistended, mild epigastric tenderness no rebound or guarding ; no hepatosplenomegaly; bowel sounds are present in all four quadrants. EXTREMITIES: No clubbing, cyanosis, or edema. SKIN: Normal; no rash; no jaundice. DRIER TAKE OFF TENDER: No focal deficits; alert and oriented times three. Assessment and Plan Plan Epigastric tenderness, elevated liver function tests, abnormal ultrasound At this point I would recommend an upper endoscopy so as to rule out peptic ulcer disease or reflux In the meanwhile continue with current supportive measures Further recommendations shall depend on the findings of the endoscopy Monitor labs Peter Perez MD Nov 24, 2017 15:49
--- NOTE | 2017-11-24 15:50 | PD.CONS ---
HPI History of Present Illness This is a 22 year old male with no significant medical history for abd pain that started last night while he was asleep. he cites pain in epigastric and hypogastric regions. THe pain is intermittent, exacerbated by bending over. he did have nausea and vomiting last night. No blood in emesis. His last meal before pains started was chik reuben sandwich and milkshake. Denies sick contacts , recent fevers. Admits fever 5 days ago. No diarrhea, blood in stool, or black tarry stool. Denies etoh consumption, liver problems hx hepatitis. GI has been consulted for abd pain and elevated LFTs. PFSH Past Medical History None Past Surgical History None Coded Allergies: No Known Allergies (Unverified , 11/24/17) Family History Grandmother has history of gallstone and cholecystectomy. Social History Patient denies tobacco, alcohol, or illicit drugs. Review of Systems Constitutional: DENIES: Fever Endocrine: DENIES: Polydipsia Eyes: DENIES: Blurred vision Ears, nose, mouth, throat: DENIES: Hearing loss Respiratory: DENIES: Cough Cardiovascular: DENIES: Chest pain Gastrointestinal: COMPLAINS OF: Abdominal pain, Nausea, Vomiting, DENIES: Black stools, Bloody stools, Constipation, Diarrhea, Hematemesis Genitourinary: DENIES: Hematuria Musculoskeletal: DENIES: Joint Swelling Integumentary: DENIES: Jaundice Hematologic/lymphatic: DENIES: Bruising Neurologic: DENIES: Abnormal gait Psychiatric: DENIES: Confusion GI Exam Vitals I&O Vital Signs Date Time Temp Pulse Resp B/P (MAP) Pulse Ox O2 Delivery O2 Flow Rate FiO2 11/24/17 15:29 11/24/17 15:28 98.2 66 20 114/74 (87) 98 11/24/17 12:50 98.6 64 16 122/62 (82) 100 Room Air 11/24/17 07:39 67 20 114/71 (85) 100 Room Air 11/24/17 04:18 69 16 116/75 (89) 96 Room Air 11/24/17 02:07 99 Room Air 11/24/17 02:07 86 18 99 Room Air 11/24/17 00:47 55 18 137/75 (95) 100 11/24/17 00:17 98.1 60 20 97 Room Air I/O 11/23/17 11/23/17 11/23/17 11/24/17 11/24/17 11/24/17 07:00 15:00 23:00 07:00 15:00 23:00 Intake Total 1000 ml 1000 ml Balance 1000 ml 1000 ml Intake Oral 600 ml IV Total 1000 ml 400 ml # Voids 1 Imaging Last Impressions Gall Bladder Ultrasound 11/24/17 0427 Signed Impressions: Service Date/Time: Friday, November 24, 2017 03:53 - CONCLUSION: 1. Positive for gallbladder sludge without gallstones or biliary ductal dilatation. Remainder of exam unremarkable. Elliot Morillo MD Chest X-Ray 11/24/17 0151 Signed Impressions: Service Date/Time: Friday, November 24, 2017 02:20 - CONCLUSION: 1. No acute findings. Minimal basilar atelectasis. Elliot Morillo MD Laboratory Test 11/24/17 02:00 White Blood Count 13.4 TH/MM3 Red Blood Count 4.81 MIL/MM3 Hemoglobin 14.3 GM/DL Hematocrit 41.2 % Mean Corpuscular Volume 85.5 FL Mean Corpuscular Hemoglobin 29.8 PG Mean Corpuscular Hemoglobin Concent 34.8 % Red Cell Distribution Width 12.9 % Platelet Count 319 TH/MM3 Mean Platelet Volume 7.0 FL Neutrophils (%) (Auto) 79.6 % Lymphocytes (%) (Auto) 13.9 % Monocytes (%) (Auto) 5.7 % Eosinophils (%) (Auto) 0.6 % Basophils (%) (Auto) 0.2 % Neutrophils # (Auto) 10.7 TH/MM3 Lymphocytes # (Auto) 1.9 TH/MM3 Monocytes # (Auto) 0.8 TH/MM3 Eosinophils # (Auto) 0.1 TH/MM3 Basophils # (Auto) 0.0 TH/MM3 CBC Comment DIFF FINAL Differential Comment D-Dimer Quantitative (PE/DVT) 0.28 MG/L FEU Urine Color YELLOW Urine Turbidity CLEAR Urine pH 6.0 Urine Specific [place] 1.023 Urine Protein TRACE mg/dL Urine Glucose (UA) NEG mg/dL Urine Ketones NEG mg/dL Urine Occult Blood NEG Urine Nitrite NEG Urine Bilirubin NEG Urine Urobilinogen LESS THAN 2.0 MG/DL Urine Leukocyte Esterase NEG Urine RBC 2 /hpf Urine WBC 1 /hpf Urine Squamous Epithelial Cells <1 /hpf Urine Bacteria RARE /hpf Urine Mucus FEW /lpf Microscopic Urinalysis Comment CULT NOT INDICATED Blood Urea Nitrogen 12 MG/DL Creatinine 1.02 MG/DL Random Glucose 85 MG/DL Total Protein 7.9 GM/DL Albumin 4.0 GM/DL Calcium Level 8.6 MG/DL Alkaline Phosphatase 153 U/L Aspartate Amino Transf (AST/SGOT) 84 U/L Alanine Aminotransferase (ALT/SGPT) 73 U/L Total Bilirubin 0.3 MG/DL Sodium Level 138 MEQ/L Potassium Level 3.8 MEQ/L Chloride Level 102 MEQ/L Carbon Dioxide Level 28.0 MEQ/L Anion Gap 8 MEQ/L Estimat Glomerular Filtration Rate 93 ML/MIN Total Creatine Kinase 160 U/L Creatine Kinase MB 1.3 NG/ML Troponin I LESS THAN 0.02 NG/ML B-Type Natriuretic Peptide 2 PG/ML Lipase 145 U/L Physical Examination HEENT: PERRL; normocephalic; atraumatic; no jaundice. CHEST: CTA CARDIAC: RRR ABDOMEN: Soft, nondistended, epigastric and RUQ TTP; no hepatosplenomegaly; bowel sounds are present in all four quadrants. EXTREMITIES: No clubbing, cyanosis, or edema. SKIN: Normal; no rash; no jaundice. ACCOUNTING POLICY CONSULTANT: No focal deficits; alert and oriented times three. Olga Farris Nov 24, 2017 15:50
--- NOTE | 2017-11-24 16:03 | RADRPT ---
EXAM DATE/TIME: 11/24/2017 13:10 [place] COMPARISON: US ABDOMEN - GALLBLADDER, November 24, 2017, 3:53. INDICATIONS : Right upper quadrant pain, nausea and vomiting. DOSE: 4.2 mCi [id number] Mebrofenin IV MEDICATION: 1.6 mcg Cholecystokinin IV; No symptomatic response. Cholecystokinin was administered by slow infusion over 8 minutes beginning at 60 minutes. MEDICAL HISTORY : None. SURGICAL HISTORY : None. ENCOUNTER: Initial ACUITY: 1 day PAIN SCALE: 10/10 LOCATION: Right upper quadrant TECHNIQUE: Following the intravenous administration of radiotracer, dynamic sequential image were performed with continuous acquisition. Time-activity curves were generated. FINDINGS: HEPATIIC KINETICS: There is prompt uptake of radiotracer in the liver. No focal defects are seen. There is normal rate of washout from the hepatic parenchyma. BILIARY CLEARANCE: Activity is first seen in the extrahepatic biliary system at 10-15 minutes. There is normal excretio n into the small bowel. GALLBLADDER: Activity is first seen in the gallbladder at 35 minutes. POST CHOLECYSTOKININ: After Cholecystokinin administration, there is prompt emptying of the gallbladder with a normal eject ion fraction. Common bile duct kinetics are normal and there is no evidence of biliary obstruction. BILIARY ENTERIC REFLUX: None observed. CLINICAL: The patient was asymptomatic after Cholecystokinin administration. CONCLUSION: Normal examination. Cesar Lyman MD on November 24, 2017 at 15:58 Board Certified Radiologist. This report was verified electronically.
--- NOTE | 2017-11-24 16:34 | PD.PROCEDR ---
GI Procedure PROCEDURE PERFORMED EGD INDICATION FOR PROCEDURE Epigastric pain PROCEDURE: The procedure, risks and benefits were discussed with Mr. Gutierrez and informed consent was obtained. Anesthesia sedated him with Diprivan. He was placed in the left lateral decubitus position. EGD: The Pentax videoscope was introduced through the oropharynx and advanced to the second portion of the duodenum under direct visualization. Retroflexion was performed in the stomach. FINDINGS: Esophagus this was normal Stomach this too was unremarkable and within normal limits Duodenum this too appeared to be unremarkable and within normal limits ESTIMATED BLOOD LOSS: None SPECIMENS REMOVED: None COMPLICATIONS: None IMPRESSION: Normal EGD PLAN: Monitor labs Clear liquid diet Further recommendations shall depend on the hida scan and clinical state in the morning Peter Perez MD Nov 24, 2017 16:34
[2017-11-25] VITALS (7 sets, daily range): BP systolic 103–122; BP diastolic 62–74; PULSE 65–94; RESP 16–18; TEMP 97.9–98.6; O2SAT 96–100
--- NOTE | 2017-11-25 00:37 | EKG ---
Date Performed: 11/24/2017 Time Performed: 02:11:33 PTAGE: 22 years EKG: Sinus rhythm BORDERLINE RIGHT AXIS DEVIATION BORDERLINE ECG NO PREVIOUS TRACING DOCTOR: Molina Lyons Interpretating Date/Time 11/25/2017 00:36:15
[2017-11-25] MEDS: SODIUM CHLORIDE 0.9% FLUSH 10 ML FLUSH IV FLUSH SCH ×2 (09:00→21:00)
[2017-11-25 10:23] LABS: AUTOMATED NEUTROPHIL # 2.9 TH/MM3 (1.8-7.7); BASOPHIL % 0.6 % (0.0-2.0); EOSINOPHIL % 0.7 % (0.0-4.0); HEMATOCRIT 44.6 % (39.0-51.0); HEMOGLOBIN 15.1 GM/DL (13.0-17.0); LYMPH % 34.8 % (9.0-44.0); LYMPHOCYTE # 1.8 TH/MM3 (1.0-4.8); MEAN CELL VOLUME 86.5 FL (80.0-100.0); MEAN CORPUSCULAR HEMOGLOBIN 29.2 PG (27.0-34.0); MEAN CORPUSCULAR HGB CONC 33.8 % (32.0-36.0); MEAN PLATELET VOLUME 7.3 FL (7.0-11.0); MONO % 8.7 % (0.0-8.0); MONOCYTE # 0.4 TH/MM3 (0-0.9); NEUT % 55.2 % (16.0-70.0); PLATELET COUNT 344 TH/MM3 (150-450); RED BLOOD COUNT 5.16 MIL/MM3 (4.50-5.90); RED CELL DISTRIBUTION WIDTH 13.1 % (11.6-17.2); WHITE BLOOD COUNT 5.2 TH/MM3 (4.0-11.0)
[2017-11-25 10:48] LABS: ALBUMIN 3.9 GM/DL (3.4-5.0); AST (GOT) 38 U/L (15-39); BICARBONATE 28.2 MEQ/L (21.0-32.0); BLOOD UREA NITROGEN 6 MG/DL (7-18); CALCIUM 9.1 MG/DL (8.5-10.1); CHLORIDE 103 MEQ/L (98-107); CREATININE 0.84 MG/DL (0.60-1.30); GLOMERULAR FILTRATION RATE 116 ML/MIN (>89); GLUCOSE,RANDOM 86 MG/DL (74-106); SODIUM (NA) 137 MEQ/L (136-145)
[2017-11-25 10:50] LABS: ALT (GPT) 70 U/L (9-52)
[2017-11-25 10:51] LABS: ALKALINE PHOSPHATASE 139 U/L (45-117); TOTAL BILIRUBIN ADULT 0.5 MG/DL (0.2-1.0); TOTAL PROTEIN 7.9 GM/DL (6.4-8.2)
[2017-11-25] MEDS ORDERED: BUPIVACAINE/EPINEPHRINE 0.5% PF 30 ML VIAL ONE (11:58)
--- NOTE | 2017-11-25 12:20 | HHI.GIFU ---
Subjective Remarks Pt resting in bed. Pain 02/02 RUQ. Going for lap irma. (Olga Farris) Objective Vitals I&O Vital Signs Date Time Temp Pulse Resp B/P (MAP) Pulse Ox O2 Delivery O2 Flow Rate FiO2 11/25/17 11:30 97.9 67 18 103/62 (76) 99 11/25/17 08:30 97.9 65 16 122/74 (90) 11/25/17 04:50 98.1 80 18 121/71 (88) 100 11/25/17 00:40 98.6 85 18 99 11/24/17 19:38 98.4 86 18 124/68 (86) 98 11/24/17 17:58 98.4 71 20 118/70 (86) 99 11/24/17 16:50 98.4 71 20 118/70 (86) 99 11/24/17 16:38 98.0 76 16 108/63 (78) 97 11/24/17 15:30 98.2 64 20 114/68 (83) 97 11/24/17 15:29 11/24/17 15:28 98.2 66 20 114/74 (87) 98 11/24/17 12:50 98.6 64 16 122/62 (82) 100 Room Air I/O 11/24/17 11/24/17 11/24/17 11/25/17 11/25/17 11/25/17 07:00 15:00 23:00 07:00 15:00 23:00 Intake Total 1000 ml 1000 ml 700 ml 0 ml Balance 1000 ml 1000 ml 700 ml 0 ml Intake Oral 600 ml 300 ml 0 ml IV Total 1000 ml 400 ml 300 ml 0 ml Other 100 ml # Voids 1 2 Laboratory Laboratory Tests Test 11/25/17 08:35 White Blood Count 5.2 Red Blood Count 5.16 Hemoglobin 15.1 Hematocrit 44.6 Mean Corpuscular Volume 86.5 Mean Corpuscular Hemoglobin 29.2 Mean Corpuscular Hemoglobin Concent 33.8 Red Cell Distribution Width 13.1 Platelet Count 344 Mean Platelet Volume 7.3 Neutrophils (%) (Auto) 55.2 Lymphocytes (%) (Auto) 34.8 Monocytes (%) (Auto) 8.7 Eosinophils (%) (Auto) 0.7 Basophils (%) (Auto) 0.6 Neutrophils # (Auto) 2.9 Lymphocytes # (Auto) 1.8 Monocytes # (Auto) 0.4 Eosinophils # (Auto) 0.0 Basophils # (Auto) 0.0 CBC Comment DIFF FINAL Differential Comment Blood Urea Nitrogen 6 Creatinine 0.84 Random Glucose 86 Total Protein 7.9 Albumin 3.9 Calcium Level 9.1 Alkaline Phosphatase 139 Aspartate Amino Transf (AST/SGOT) 38 Alanine Aminotransferase (ALT/SGPT) 70 Total Bilirubin 0.5 Sodium Level 137 Potassium Level 3.7 Chloride Level 103 Carbon Dioxide Level 28.2 Anion Gap 6 Estimat Glomerular Filtration Rate 116 Imaging Last Impressions Gall Bladder Ultrasound 11/24/17 0427 Signed Impressions: Service Date/Time: Friday, November 24, 2017 03:53 - CONCLUSION: 1. Positive for gallbladder sludge without gallstones or biliary ductal dilatation. Remainder of exam unremarkable. Elliot Morillo MD Chest X-Ray 11/24/17 0151 Signed Impressions: Service Date/Time: Friday, November 24, 2017 02:20 - CONCLUSION: 1. No acute findings. Minimal basilar atelectasis. Elliot Morillo MD Hepatobiliary Scan Nuclear Medicine 11/24/17 0000 Signed Impressions: Service Date/Time: Friday, November 24, 2017 13:10 - CONCLUSION: Normal examination. Cesar Lyman MD Physical Exam HEENT: PERRL; normocephalic; atraumatic; no jaundice. CHEST: CTA CARDIAC: RRR ABDOMEN: Soft, nondistended,RUQ TTP; no hepatosplenomegaly; bowel sounds are present in all four quadrants. EXTREMITIES: No clubbing, cyanosis, or edema. SKIN: Normal; no rash; no jaundice. INTENSIVE CARE ANAESTHETIST: No focal deficits; alert and oriented times three. (Olga Farris) Assessment and Plan Plan Epigastric tenderness, elevated liver function tests, abnormal ultrasound 11/25/17 - s/p EGD normal. still with RUQ TTP. HIDA was normal. mild decrease LFT. Pt now going for lap irma. PLAN - await lap irma - further mgmt per GS - supportive care - GI will sign off. please reconsult if needed this pt seen by myself and Dr Black and this note is written on his behalf (Olga Farris) Plan Agree with above note, patient will go for laparoscopic cholecystectomy, we will follow up as needed (Jimmy Black MD) Olga Farris Nov 25, 2017 12:20 Jimmy Black MD Nov 25, 2017 15:43
[2017-11-25] MEDS ORDERED: BUPIVACAINE/EPINEPHRINE 0.25% 50 ML VIAL ONE (12:45)
[2017-11-25] MEDS ORDERED: CIPROFLOXACIN 400 MG PREMIX 200 ML ONE (12:56)
[2017-11-25] MEDS ORDERED: ACETAMINOPHEN 1000 MG/100 ML 100 ML IV ONE (12:56)
[2017-11-25] MEDS ORDERED: GLUCAGON 1 MG/ML VIAL ONE (13:49)
[2017-11-25] MEDS ORDERED: IOHEXOL IV ONE (14:09)
--- NOTE | 2017-11-25 14:38 | RADRPT ---
EXAM DATE/TIME: 11/25/2017 14:01 [facility] COMPARISON: No previous studies available for comparison. INDICATIONS : Cholecystitis. FLUORO TIME: 0.48 minutes IMAGE COUNT: 2 MEDICAL HISTORY : None. SURGICAL HISTORY : None. ENCOUNTER: Initial ACUITY: 2 days PAIN SCORE: Non-responsive. LOCATION: Right upper quadrant PROCEDURE: CHOLANGIOGRAM, OPERATIVE 1. Intraoperative cholangiogram. In the operating room, the cystic duct stump was injected and radiographs obtained. The examination demonstrates normal-appearing common bile duct. No filling defects. CONCLUSION: No evidence of common duct stone. Raúl Metz MD on November 25, 2017 at 14:35 Board Certified Radiologist. This report was verified electronically.
[2017-11-25] MEDS ORDERED: *morphine SULFATE 4 MG/ML PERIprocedure ONLY ONE ×2 (14:57→15:07)
[2017-11-25] MEDS ORDERED: MORPHINE SULFATE 4 MG/ML INJ ONE (15:00)
--- NOTE | 2017-11-25 15:11 | HHI.PR ---
cc: Kris Mcneal MD Immediate Post Op Note Procedure Date: Nov 25, 2017 Pre Op Diagnosis: biliary colic with gallbladder sludge Post Op Diagnosis: Same Surgeon: Kris Mcneal Gluing Machine Operator Electronic(s): Jonathan NGUYEN Procedure: 1. Laparoscopic cholecystectomy with intraoperative cholangiogram with intraoperative use of fluoroscopy 2. Laparoscopic appendectomy Findings: Non-inflamed gallbladder Injected appendix Complications: None Specimen(s) removed: Gallbladder and contents Appendix Estimated blood loss: 10 ml Anesthesia: General Drains: None IVF (1000 ml) Patient to: PACU Patient Condition: Good Date/Time of Procedure: SEE SURGICAL CARE RECORD Kris Mcneal MD Nov 25, 2017 15:11
[2017-11-25] MEDS ORDERED: HYDROmorphone HCL PF 2 MG/ML VIAL ONE ×2 (15:14→15:29)
[2017-11-25] MEDS ORDERED: ACETAMINOPHEN/HYDROcodone 325 MG/7.5 MG TAB PO PRN ×2 (15:15)
[2017-11-25] MEDS ORDERED: HYDR-3288 PO (15:16)
--- NOTE | 2017-11-25 15:26 | HHI.PR ---
Subjective Remarks Mr. Gutierrez is a 22-year-old male admitted with abdominal pain, nausea, and vomiting. He was seen this morning. He has improvement in the symptoms today. Plan for cholecystectomy this afternoon. Objective Vital Signs Date Time Temp Pulse Resp B/P (MAP) Pulse Ox O2 Delivery O2 Flow Rate FiO2 11/25/17 11:30 97.9 67 18 103/62 (76) 99 11/25/17 08:30 97.9 65 16 122/74 (90) 11/25/17 04:50 98.1 80 18 121/71 (88) 100 11/25/17 00:40 98.6 85 18 99 11/24/17 19:38 98.4 86 18 124/68 (86) 98 11/24/17 17:58 98.4 71 20 118/70 (86) 99 11/24/17 16:50 98.4 71 20 118/70 (86) 99 11/24/17 16:38 98.0 76 16 108/63 (78) 97 11/24/17 15:30 98.2 64 20 114/68 (83) 97 11/24/17 15:29 11/24/17 15:28 98.2 66 20 114/74 (87) 98 I/O 11/24/17 11/24/17 11/24/17 11/25/17 11/25/17 11/25/17 07:00 15:00 23:00 07:00 15:00 23:00 Intake Total 1000 ml 1000 ml 700 ml 1000 ml Output Total 160 ml Balance 1000 ml 1000 ml 700 ml 840 ml Intake Oral 600 ml 300 ml 0 ml IV Total 1000 ml 400 ml 300 ml 1000 ml Other 100 ml Output Urine Total 150 ml Estimated Blood Loss 10 ml # Voids 1 2 Result Diagram: 11/25/17 0835 11/25/17 0835 Objective Remarks GENERAL: NAD, A&Ox3 HEAD: Normocephalic. NECK: Supple, trachea midline. No lymphadenopathy. EYES: No scleral icterus. No injection or drainage. CARDIOVASCULAR: Regular rate and rhythm without murmurs, gallops, or rubs. RESPIRATORY: Breath sounds equal bilaterally. No accessory muscle use. GASTROINTESTINAL: Abdomen soft, non-tender, nondistended. MUSCULOSKELETAL: No cyanosis, or edema. SKIN: Warm and dry. NEURO: No focal neurological deficitis. A/P Problem List: (1) Abdominal pain ICD Code: R10.9 - Unspecified abdominal pain Status: Acute (2) Leukocytosis ICD Code: D72.829 - Elevated white blood cell count, unspecified Status: Acute (3) Biliary sludge ICD Code: K83.8 - Other specified diseases of biliary tract Status: Acute Assessment and Plan 22-year-old male admitted secondary to nausea, vomiting, and abdominal pain. Slight sheen on gallbladder ultrasound. Status post cholecystectomy Surgeon following Continue as needed pain treatments Possible discharge tomorrow Gastroenteritis Improving Continue IV hydration By mouth intake as tolerated Follow LFTs Follow leukocytosis DVT prophylaxis Patient is ambulatory Problem Qualifiers (1) Abdominal pain: Qualified Codes: R10.11 - Right upper quadrant pain (2) Leukocytosis: Qualified Codes: D72.829 - Elevated white blood cell count, unspecified Danny Ellis MD Nov 25, 2017 15:26
[2017-11-25] MEDS ORDERED: DO NOT ADM ANY ANTICOAGULANT DRUGS PRN (16:00)
[2017-11-25] MEDS: MORPHINE SULFATE 4 MG/ML INJ IV PUSH PRN (22:44)
[2017-11-26] MEDS: SODIUM CHLOR 0.9% 1000 ML INJ 1,000 ML IV SCH ×3 (00:07→05:53)
[2017-11-26 01:00] VITALS: BP 101/51; PULSE 72; RESP 16; TEMP 97.8; O2SAT 97
[2017-11-26 04:42] VITALS: BP 103/58; PULSE 68; RESP 16; TEMP 97.7; O2SAT 98
[2017-11-26 08:52] LABS: AUTOMATED NEUTROPHIL # 7.1 TH/MM3 (1.8-7.7); BASOPHIL % 0.1 % (0.0-2.0); HEMATOCRIT 40.2 % (39.0-51.0); HEMOGLOBIN 13.8 GM/DL (13.0-17.0); LYMPH % 16.6 % (9.0-44.0); LYMPHOCYTE # 1.6 TH/MM3 (1.0-4.8); MEAN CELL VOLUME 86.3 FL (80.0-100.0); MEAN CORPUSCULAR HEMOGLOBIN 29.5 PG (27.0-34.0); MEAN CORPUSCULAR HGB CONC 34.2 % (32.0-36.0); MONO % 8.2 % (0.0-8.0); MONOCYTE # 0.8 TH/MM3 (0-0.9); NEUT % 75.1 % (16.0-70.0); PLATELET COUNT 320 TH/MM3 (150-450); RED BLOOD COUNT 4.66 MIL/MM3 (4.50-5.90); RED CELL DISTRIBUTION WIDTH 13.2 % (11.6-17.2); WHITE BLOOD COUNT 9.5 TH/MM3 (4.0-11.0)
[2017-11-26 09:00] VITALS: BP 106/67; PULSE 69; RESP 16; TEMP 98.4; O2SAT 98
[2017-11-26] MEDS: SODIUM CHLORIDE 0.9% FLUSH 10 ML FLUSH IV FLUSH SCH (09:00)
[2017-11-26] MEDS: MORPHINE SULFATE 4 MG/ML INJ IV PUSH PRN (09:08)
[2017-11-26] MEDS ORDERED: DOCU100C15 PO (09:11)
[2017-11-26 09:16] LABS: ALBUMIN 3.4 GM/DL (3.4-5.0); AST (GOT) 61 U/L (15-39); BICARBONATE 28.1 MEQ/L (21.0-32.0); BLOOD UREA NITROGEN 7 MG/DL (7-18); CALCIUM 8.8 MG/DL (8.5-10.1); CHLORIDE 105 MEQ/L (98-107); CREATININE 0.83 MG/DL (0.60-1.30); GLOMERULAR FILTRATION RATE 118 ML/MIN (>89); GLUCOSE,RANDOM 89 MG/DL (74-106); SODIUM (NA) 139 MEQ/L (136-145)
[2017-11-26 09:17] LABS: ALT (GPT) 91 U/L (9-52)
[2017-11-26 09:19] LABS: ALKALINE PHOSPHATASE 117 U/L (45-117); TOTAL BILIRUBIN ADULT 0.4 MG/DL (0.2-1.0); TOTAL PROTEIN 6.7 GM/DL (6.4-8.2)
[2017-11-26] MEDS ORDERED: PERC5TAB12 PO (09:35)
[2017-11-26] MEDS ORDERED: oxyCODONE/ACETAMINOPHEN 10 MG/325 MG TAB PO PRN (09:45)
--- NOTE | 2017-11-26 10:37 | MP ---
cc: RA HERNANDEZ M.D.,AMI Pena MD DATE OF SURGERY 11/25/2017 PROCEDURE 1. Laparoscopic cholecystectomy with intraoperative cholangiogram with intraoperative use of fluoroscopy. 2. Laparoscopic appendectomy. PREOPERATIVE DIAGNOSIS Biliary colic with sludge. POSTOPERATIVE DIAGNOSIS Biliary colic with sludge with no evidence of common duct stones and injected tip of the appendix. PROCEDURE IN DETAIL The patient was taken to the operating room and placed on the operating table in the supine position. After an adequate level of general endotracheal anesthesia was achieved, the abdomen was prepped and draped in the usual fashion. Time-out was taken confirming correct patient, site, and procedure to be performed. The skin and subcutaneous tissue was infiltrated with local anesthetic and an incision made in the umbilicus and carried through to the fascia sharply. The peritoneal cavity was directly visualized. A 12 mm balloon trocar was inserted and the balloon inflated. The abdomen was insufflated. The patient was placed in reverse Trendelenburg position. Three 5 mm trocars were then placed with the first to the right of the falciform ligament and second and third in the right subcostal region. All entered the abdominal cavity under direct vision uneventfully. The fundus of the gallbladder was then grasped and retracted up and over the dome of the liver. The gallbladder appeared to be uninflamed. The cystic duct/infundibular junction and cystic artery were both circumferentially dissected. The cystic artery was doubly clipped proximally, singly clipped on the gallbladder side and divided. As the patient still had elevated liver function tests, cholangiogram was obtained to confirm that there was no common duct pathology. A single clip was placed on the gallbladder side of the cystic duct and a cystic ductotomy was made. An Momin cholangiocatheter was brought in via separate stab incision and the catheter was placed into the cystic duct and secured with a clip. Full strength contrast was utilized and under real time fluoroscopy, cholangiogram was obtained which demonstrated no evidence of filling defects. The cholangiocatheter was removed, the cystic duct doubly clipped distally and then divided. The gallbladder was dissected off of the liver bed with electrodissection. The gallbladder was placed into an EndoCatch device as it was intact and removed via the umbilical port and passed off the table. As this did not appear to be the primary source of pathology, and as the patient already had an EGD which was negative as well, search was made in the abdominal cavity especially on the right side in the epigastrium for other pathology. The stomach and liver appeared to be unremarkable; a search into the right side of the abdomen revealed an injected appendix that appeared to be slightly swollen in the tip. The mesoappendix was then taken down with the harmonic scalpel and utilizing the previously placed trocar site, the appendix had an Endoloop cinched down around the base. The appendix was then divided 1 cm distal to this, placed into an EndoCatch device, and removed via the umbilical port and passed off the table as well. The appendiceal stump was reexamined and seen to be clean and dry. The mesoappendix was also hemostatic. Careful manipulation of the small bowel revealed no evidence of the inflammation, inflammatory bowel disease, or obstruction. No other pathology was noted in the abdominal cavity. At this point, insufflation was discontinued and the abdominal trocars removed under direct vision. No bleeding was noted from the trocar sites. The laparoscope and umbilical port were then removed. The fascia was closed in the umbilicus with 0 Vicryl suture in a simple interrupted and [id number] fashion. The remaining local anesthetic was injected into the trocar sites. The skin was closed at each of the trocar sites except for the cholangiocatheter site with 4-0 Vicryl in an interrupted buried fashion. All trocar site and the cholangiocatheter site were dressed with Steri-Strips. The patient was extubated and taken back to the recovery room in stable condition. He tolerated the procedure well. MD KAIN Carrasco/NICOLE /9:24 PM /10:26 AM ROSALIE
--- NOTE | 2017-11-26 11:41 | HHI.DS ---
Discharge Summary Admission Date Nov 24, 2017 at 07:43 Discharge Date: Nov 26, 2017 Admitting Diagnosis Abdominal pain, Gallbladder sludge (1) Abdominal pain ICD Code: R10.9 - Unspecified abdominal pain Diagnosis: Principal Status: Acute (2) Biliary sludge ICD Code: K83.8 - Other specified diseases of biliary tract Diagnosis: Principal Status: Acute (3) Leukocytosis ICD Code: D72.829 - Elevated white blood cell count, unspecified Diagnosis: Secondary Status: Acute Procedures Cholecystectomy Appendectomy Brief History - From Admission 22-year-old male with no significant medical history presented to the emergency room with complaint of midepigastric pain. Patient states he ate some chicken filet late last night and about 4 hours later he started to experience midepigastric abdominal pain with associated nausea and vomiting 5. He denies any history of acid reflux. He denies any diarrhea. Workup in the emergency room revealed mildly elevated LFTs and sludge in the gallbladder but no obstructions. He is wbc's also mildly elevated. Patient reports since arrival he is feeling better. Still experiencing some mid epigastric discomfort but no longer has nausea or vomiting. General surgery has been consulted by the ED physician for evaluation given the abnormal gallbladder ultrasound. CBC/BMP: 11/26/17 0805 11/26/17 0805 Significant Findings Laboratory Tests Test 11/24/17 02:00 11/25/17 08:35 11/26/17 08:05 White Blood Count 13.4 TH/MM3 (4.0-11.0) Neutrophils (%) (Auto) 79.6 % (16.0-70.0) 75.1 % (16.0-70.0) Neutrophils # (Auto) 10.7 TH/MM3 (1.8-7.7) Urine Bacteria RARE /hpf (NONE) Urine Mucus FEW /lpf (OCC) Alkaline Phosphatase 153 U/L (45-117) 139 U/L (45-117) Aspartate Amino Transf (AST/SGOT) 84 U/L (15-39) 61 U/L (15-39) Alanine Aminotransferase (ALT/SGPT) 73 U/L (9-52) 70 U/L (9-52) 91 U/L (9-52) Troponin I LESS THAN 0.02 NG/ML Monocytes (%) (Auto) 8.7 % (0.0-8.0) 8.2 % (0.0-8.0) Blood Urea Nitrogen 6 MG/DL (7-18) Hospital Course Mr. Gutierrez is a 22-year-old male. He was admitted secondary to an acute onset of abdominal pain with nausea and vomiting. He been having occasional abdominal pain before. Imaging showed evidence of sludge in the gallbladder. Leukocytosis was present. Clinical suspicion for cholecystitis was present and he had a cholecystectomy and appendectomy. She is doing well postop. Pain was not controlled [place] and he is transitioned to Percocet. She will discharge home today with Percocet as a treatment and stool softeners as needed. Outpatient follow-up with surgery is arranged. Pt Condition on Discharge: Stable Discharge Disposition: Discharge Home Discharge Time: <= 30 minutes Discharge Instructions DIET: Follow Instructions for: As Tolerated, No Restrictions Activities you can perform: Regular-No Restrictions Follow up Referrals: PCP Follow-up - 2 Weeks Surgical - 2 Weeks with Kris Mcneal MD New Medications: Docusate Sodium (Docusate Sodium) 100 Mg Cap 100 MG PO BID PRN for CONSTIPATION, #30 CAP 0 Refills Oxycodone-Acetaminophen (Percocet) 5-325 mg Tab 1-2 TAB PO Q6H PRN for PAIN, #40 TAB 0 Refills Danny Ellis MD Nov 26, 2017 11:41
[2017-11-26 11:46] LABS: HEPATITIS A AB IGM NEGATIVE (NEGATIVE); HEPATITIS B CORE AB IGM NEGATIVE (NEGATIVE); HEPATITIS B SURFACE ANTIGEN NEGATIVE (NEGATIVE); HEPATITIS C AB IgG NEGATIVE (NEGATIVE)
[2017-11-26 12:45] VITALS: BP 127/70; PULSE 80; RESP 15; TEMP 98.5; O2SAT 99
[2017-11-26] MEDS: oxyCODONE/ACETAMINOPHEN 5 MG/325 MG TAB PO PRN ×2 (13:01→17:07)
--- NOTE | 2017-11-26 15:24 | HHI.PR ---
Subjective Subjective Notes Resting in bed C/o pain Has been OOB Objective Vitals/I&O Vital Signs Date Time Temp Pulse Resp B/P (MAP) Pulse Ox O2 Delivery O2 Flow Rate FiO2 11/26/17 12:45 98.5 80 15 127/70 (89) 99 11/26/17 09:00 Room Air 11/25/17 15:58 2 Labs Laboratory Tests Test 11/26/17 08:05 White Blood Count 9.5 Red Blood Count 4.66 Hemoglobin 13.8 Hematocrit 40.2 Mean Corpuscular Volume 86.3 Mean Corpuscular Hemoglobin 29.5 Mean Corpuscular Hemoglobin Concent 34.2 Red Cell Distribution Width 13.2 Platelet Count 320 Mean Platelet Volume 7.0 Neutrophils (%) (Auto) 75.1 Lymphocytes (%) (Auto) 16.6 Monocytes (%) (Auto) 8.2 Eosinophils (%) (Auto) 0.0 Basophils (%) (Auto) 0.1 Neutrophils # (Auto) 7.1 Lymphocytes # (Auto) 1.6 Monocytes # (Auto) 0.8 Eosinophils # (Auto) 0.0 Basophils # (Auto) 0.0 CBC Comment DIFF FINAL Differential Comment Blood Urea Nitrogen 7 Creatinine 0.83 Random Glucose 89 Total Protein 6.7 Albumin 3.4 Calcium Level 8.8 Alkaline Phosphatase 117 Aspartate Amino Transf (AST/SGOT) 61 Alanine Aminotransferase (ALT/SGPT) 91 Total Bilirubin 0.4 Sodium Level 139 Potassium Level 3.8 Chloride Level 105 Carbon Dioxide Level 28.1 Anion Gap 6 Estimat Glomerular Filtration Rate 118 Hepatitis A IgM Antibody NEGATIVE Hepatitis B Surface Antigen NEGATIVE Hepatitis B Core IgM Antibody NEGATIVE Hepatitis C Antibody NEGATIVE Radiology Last 48 hours Impressions Gall Bladder Ultrasound 11/24/17 1977 Signed Impressions: Service Date/Time: Friday, November 24, 2017 03:53 - CONCLUSION: 1. Positive for gallbladder sludge without gallstones or biliary ductal dilatation. Remainder of exam unremarkable. Elliot Morillo MD Chest X-Ray 11/24/17 0157 Signed Impressions: Service Date/Time: Friday, November 24, 2017 02:20 - CONCLUSION: 1. No acute findings. Minimal basilar atelectasis. Elliot Morillo MD Cardiovascular: Regular Lungs: Clear Abdomen: Other (lap site c/d/i ) Extremities: No edema A/P Assessment and Plan 22 year male POD1 lap irma; IOC; lap appy -Advanced to regular diet -Percocet for pain -Okay to shower -GS clear for DC -Follow up Dec 07 at 1:20 PM Attending Note - Dr. Mcneal Discussed with mother; pain improved. Abdomen poultry tender, but less so. Await pathology report. Ok for discharge; follow up as above The exam, history, and the medical decision-making described in the above note were completed with the assistance of the mid-level provider. I reviewed and agree with the findings presented. I attest that I had a [id number] encounter with the patient on the same day, and personally performed and documented my assessment and findings in the medical record. Patsy Kim Nov 26, 2017 15:24 Kris Mcneal MD Nov 26, 2017 16:15
[2017-11-26 16:00] VITALS: BP 117/63; PULSE 76; RESP 15; TEMP 98.6; O2SAT 98
== END 2017-11-26 19:25 | disposition home or self-care (01) ==
LOC: NEPE 00:13 → NEDA 07:43 → H6YA 15:19
PROVIDERS: ADMIT Hospitalist; ATTEND Hospitalist
DX: R10.13 Epigastric pain (principal); K82.8 Other specified diseases of gallbladder; K38.8 Other specified diseases of appendix; R11.2 Nausea with vomiting, unspecified; K52.9 Noninfective gastroenteritis and colitis, unspecified; D72.829 Elevated white blood cell count, unspecified; R79.89 Other specified abnormal findings of blood chemistry; R06.02 Shortness of breath
CPT/HCPCS: 00731; 00840; 43235; 44970; 47563; 71045; 74300; 76705; 78227; 80053; 80074; 81001; 82550; 82552; 83690; 83880; 84484; 85025; 85379; 88304; 93005; 96361; 96365; 96375; 96376; 99285; A9537; G0378; J0131; J0744; J1170; J2270; J2543; J2805; J3010; J7030; J1610